=== PATIENT | male | born 1980 | race Caucasian/White ===

== ENCOUNTER 2018-06-15 05:45 | Emergency (ER) | payer MEDICAID, OTHER ==
[~2018-06-15] VITALS: Wt 94.2 kg
[2018-06-15 05:49] VITALS: BP 143/60; PULSE 66; RESP 18
--- NOTE | 2018-06-15 06:27 | ERD ---
ER Documentation Chief Complaint Chief Complaint right eye stye x 5 days HPI 38-year-old male, presents to the emergency department, complaining of erythematous, painful lump on the lower eyelid of the right eye for 5 days. He denies blurred vision, no fever, no chills, no foreign body sensation. No trauma. ROS All systems reviewed and are negative except as per history of present illness. Medications Home Meds Active Scripts Dexamethasone* Ophth (Dexamethasone* Ophth) 0.1%-5 Ml Drops, 1 DROP RIGHT EYE TID for 5 Days, EA Prov:MARQUITA FALCON MD 06/15/18 Erythromycin Base (Erythromycin) 1 Gm Oint...g., 1 APPLIC RIGHT EYE QID for 7 Days Prov:MARQUITA FALCON MD 06/15/18 Allergies Allergies: Coded Allergies: No Known Drug Allergies (Verified Allergy, Unknown, 06/15/18) PMhx/Soc History of Surgery: Yes (BROKEN RIGHT ARM) Hx Miscellaneous Medical Probl: Yes (DM) Hx Alcohol Use: No Hx Substance Use: No Hx Tobacco Use: No Smoking Status: Never smoker Physical Exam Vitals Vital Signs Date Temp Pulse Resp B/P (MAP) Pulse Ox O2 O2 Flow FiO2 Time Delivery Rate 06/15/18 97.3 66 18 143/60 98 05:49 (87) Physical Exam Patient alert, oriented, vital signs stable. HEAD: Normocephalic, atraumatic. EYES: PERRLA, EOMI, Sclera and conjunctiva appear normal, right lower eyelid with 3 mm erythematous lump. NOSE: Clear and patent nostrils. EARS: Canals clear, tympanic membranes WNL. MOUTH: normal lips and tongue, no oral lesions. THROAT: Normal oropharynx, no tonsillar exudates. NECK: Supple, No lymphadenopathy. Full ROM without pain or tenderness. HEART: RRR, no rubs, murmurs, clicks or gallops. LUNGS: Clear to auscultation. ABDOMEN: Soft, non-tender without masses or hepatosplenomegaly. EXTREMITIES: No edema bilaterally. BACK: Full ROM, no deformity, normal back exam NEURO: Cranial nerves grossly intact, no motor or sensory deficit SKIN: No rashes, no petechia. Procedures/MDM Differential diagnosis include but not limited to: infection bacterial/viral/fungal, iritis, scleritis, corneal abrasion, allergies, foreign body, glaucoma. Physical examination and clinical presentation consistent most likely with hordeolum of the right lower eyelid. During the ED course the patient remained stable, no new complaints. Clinical impression discussed with patient who agrees with management. The patient is stable to be treated outpatient and will be discharged home; Some side effects of prescribed medications (headache, rash, nausea, vomiting, diarrhea, interactions with other medications) were reviewed. The patient was instructed to follow up with the primary care provider in the next 48h. If symptoms persist, worsen or new symptoms develop, then patient should return to the ED immediately. Disclaimer: Inadvertent spelling and grammatical errors are likely due to EHR/dictation software use and do not reflect on the overall quality of patient care. Also, please note that the electronic time recorded on this note does not necessarily reflect the actual time of the patient encounter. Departure Diagnosis: Primary Impression: Hordeolum externum of right lower eyelid Condition: Stable Additional Instructions: Muchas ramiro por [facility] para ruiz servicio. Esperamos que en ruiz visita a la yoel de emergencia ruiz problema medico haya sido solucionado y que se sienta mucho mejor. Para estar seguros que ruiz mejoria sigue en proceso, le pedimos el favor de hacer kylee bozena de seguimiento medico con ruiz doctor primario en los proximos 2-4 grullon. Lleve con usted estos documentos y las medicinas recetadas. Si duane sintomas empeoran, NO SE ESPERE, por favor regrese a yoel de emergencia INMEDIATAMENTE. En jacki que usted no tenga un mdico de atencin primaria: Llame al mdico o clnica comunitaria de referencia que aparece abajo rosalind las horas de consultorio para hacer kylee bozena para que le vean. CLINICAS: [facility] [phone] [facility] [phone] [facility] [phone] [facility] [phone] [id number] [place] [id number] [phone] [facility]. [phone] MARQUITA ENNIS MD Jun 15, 2018 06:27
[2018-06-15] MEDS ORDERED: ERYT1OIN6 RIGHT EYE (06:34)
[2018-06-15] MEDS ORDERED: DEXA5DRO11 RIGHT EYE (06:34)
== END 2018-06-15 06:58 | disposition home or self-care (01) ==
LOC: FTE 05:45
DX: H00.012 Hordeolum externum right lower eyelid (principal); E11.9 Type 2 diabetes mellitus without complications
CPT/HCPCS: 99283